=== PATIENT | female | born 1950 | race Caucasian/White ===

== ENCOUNTER 2018-11-09 07:56 | Day surgery (SDC) | payer MEDICARE, OTHER ==
[~2018-11-09] VITALS: Ht 166 cm; Wt 87.2 kg
[2018-11-09] MEDS ORDERED: METO25 PO (08:34)
[2018-11-09] MEDS ORDERED: HYDCHL12.5 PO (08:34)
[2018-11-09] MEDS ORDERED: ALBU90OI INH (08:35)
--- NOTE | 2018-11-09 08:57 | NUR ---
Ambulatory in Day Surgery History, Chart, Medications and Allergies reviewed before start of procedure.Patient confirms NPO status and agrees with scheduled surgery. Patient states colon prep results clear.Lungs clear T/O to Auscultation. Patient States Post-Procedure ride home has been arranged WITH . HE IS PLANNING TO RETURN APPROX 1000.
--- NOTE | 2018-11-09 09:27 | NUR ---
11/09/18 0927 Jovany Hampton PATIENT DETERMINED TO BE ASA APPROPRIATE FOR PROPOFOL SEDATION PRIOR TO START OF PROCEDURE BY . 3-LEAD EKG REVIEWED WITH PHYSICIAN PRIOR TO START OF PROCEDURE.PATIENT CONFIRMS NPO STATUS AND AGREES WITH SCHEDULED PROCEDURE.History, Chart, Medications and Allergies reviewed before start of procedure.MONITOR INTACT WITH CONTINUOUS PULSE OXIMETRY AND INTERMITTENT BP.O2 VIA N/C INTACT THROUGHOUT SEDATION/PROCEDURE.
--- NOTE | 2018-11-09 10:20 | NUR ---
PT HAS NO C/O PAIN OR DISCOMFORT. VSS. DC INSTRUCTIONS WERE REVIEWED WITH PATIENT PRIOR TO DISCHARGE BY EVIN VELIZ. PT STATES UNDERSTANDING OF INSTRUCTIONS. IV DC TIP INTACT. PT DRESSED SELF AT EDGE OF BED. NO DIZZINESS. STEADY ON FEET. DC HOME VIA WC WITH SO TO DRIVE HER.
== END 2018-11-09 23:00 | disposition home or self-care (01) ==
LOC: ORSCMMR 07:56 → ORD 09:00 → ORSCMMR 09:00
PROVIDERS: Internal Medicine Gastroenterology
PROC: 0DBK8ZX Excision of Ascending Colon, Via Natural or Artificial Opening Endoscopic, Diagnostic (ICD-10-PCS; principal; 2018-11-09 09:00)
DX: Z12.11 Encounter for screening for malignant neoplasm of colon (principal); Z80.0 Family history of malignant neoplasm of digestive organs; D12.2 Benign neoplasm of ascending colon; I10 Essential (primary) hypertension; Z79.82 Long term (current) use of aspirin; Z79.899 Other long term (current) drug therapy
CPT/HCPCS: 88305; J2704; J7120

== ENCOUNTER → 2019-01-20 | Outpatient (CLI) | payer MEDICARE, OTHER ==
[~2019-01-20] MED LIST: ALBU90OI INH; HYDCHL12.5 PO; METO25 PO
[2019-01-20 11:06] LABS: Anion Gap 10 mmol/L (6-16); Blood Urea Nitrogen 14 mg/dL (8-24); CO2, Blood 28 mmol/L (21-32); Calcium, Blood 9.1 mg/dL (8.5-10.1); Chloride, Blood 102 mmol/L (98-108); Creatinine, Blood 0.61 mg/dL (0.40-1.00); Glomerular Filtration Rate >60 (60-); Glucose, Blood 93 mg/dL (70-99); Potassium, Blood 3.7 mmol/L (3.5-5.5); Sodium, Blood 140 mmol/L (136-145)
== END | disposition home or self-care (01) ==
LOC: LAB SHORT 10:57 → LAB EV 10:57
PROVIDERS: General Practice
DX: I10 Essential (primary) hypertension (principal)
CPT/HCPCS: 80048

== ENCOUNTER 2024-08-30 14:38 | Emergency (ER) | payer OTHER ==
[~2024-08-30] VITALS: Ht 165.1 cm; Wt 86.6 kg
[2024-08-30 15:30] VITALS: BP 160/109
[2024-08-30] MEDS ORDERED: IBUP600 PO (18:23)
== END 2024-08-30 18:38 | disposition home or self-care (01) ==
LOC: ER 14:38
DX: M25.461 Effusion, right knee (principal); I10 Essential (primary) hypertension; Z88.8 Allergy status to other drugs, medicaments and biological substances; Z79.899 Other long term (current) drug therapy
CPT/HCPCS: 73562-RT; 99283-25

== ENCOUNTER 2024-09-26 07:19 | Day surgery (SDC) | payer OTHER ==
[2024-09-26] VITALS (20 sets, daily range): BP systolic 118–180; BP diastolic 57–107
[~2024-09-26] VITALS: Ht 164 cm; Wt 86.4 kg
[~2024-09-26 07:19] MED LIST changes: +ALPR1 PO; +ATOR20 PO; -HYDCHL12.5 PO; +HYDCHL25 PO; +IBUP600 PO
[2024-09-26] MEDS ORDERED: FLUTICASONE PRO12 GM INH (07:54)
--- NOTE | 2024-09-26 07:59 | NUR ---
History, Chart, Medications and Allergies reviewed before start of procedure. Patient up to Ambulate independently. Gait steady. Pre-Op teaching done. Pt verbalizes understanding. Patient confirms NPO status and agrees with scheduled surgery. Patient states colon prep results clear with gravel like sediment. Patient States Post-Procedure ride home has been arranged.
--- NOTE | 2024-09-26 08:01 | NUR ---
09/26/24 0801 Aman Acuna CONFIRMED AND REVIEWED H&P, MEDCICATIONS, ALLERGIES, MEDICAL HISTORY, RESPIRATORY HISTORY, VITAL SIGNS, 3-LEAD EKG, CONSENTS, AND PHYSICIAN ORDERS. PATIENT CONFIRMS NPO STATUS AND AGREES WITH SCHEDULED PROCEDURE. MONITOR INTACT WITH CONTINUOUS PULSE OXIMETRY, CAPNOGRAPHY, 3-LEAD EKG, INTERMITTENT BP. SUPPLEMENTAL O2 TO BE TITRATED THROUGHOUT PROCEDURE TO MAINTAIN O2 SATURATION ABOVE 90%. PATIENT DETERMINED TO BE ASA APPROPRIATE FOR PROPOFOL SEDATION PRIOR TO START OF PROCEDURE BY DR. CUNHA.
[2024-09-26] MEDS ORDERED: Benzocaine Oral Spray 0.5ML UD ONE (08:02)
--- NOTE | 2024-09-26 09:00 | NUR ---
Discharge instructions reviewed with patient. Patient verbalizes understanding. Copy given to patient to take home. Discharged via wheelchair to private car for ride home.
== END 2024-09-26 09:12 | disposition home or self-care (01) ==
LOC: ORSCMMR 07:19 → ORD 07:19 → ORSCMMR 07:20 → ORD 08:30
PROVIDERS: Internal Medicine Gastroenterology
PROC: 0DBH8ZX Excision of Cecum, Via Natural or Artificial Opening Endoscopic, Diagnostic (ICD-10-PCS; principal; 2024-09-26 08:30)
PROC: 0DB48ZX Excision of Esophagogastric Junction, Via Natural or Artificial Opening Endoscopic, Diagnostic (ICD-10-PCS; principal; 2024-09-26 08:30)
PROC: 0DB78ZX Excision of Stomach, Pylorus, Via Natural or Artificial Opening Endoscopic, Diagnostic (ICD-10-PCS; principal; 2024-09-26 08:30)
PROC: 0DB98ZX Excision of Duodenum, Via Natural or Artificial Opening Endoscopic, Diagnostic (ICD-10-PCS; principal; 2024-09-26 08:30)
DX: R14.0 Abdominal distension (gaseous) (principal); R10.84 Generalized abdominal pain; K21.9 Gastro-esophageal reflux disease without esophagitis; K63.5 Polyp of colon; Z86.0101 Personal history of adenomatous and serrated colon polyps; Z80.0 Family history of malignant neoplasm of digestive organs; K44.9 Diaphragmatic hernia without obstruction or gangrene; I10 Essential (primary) hypertension; J45.909 Unspecified asthma, uncomplicated; E78.00 Pure hypercholesterolemia, unspecified; Z79.899 Other long term (current) drug therapy
CPT/HCPCS: 88305; 88342; A9270; J2704